=== PATIENT | male | born 1975 | race Caucasian/White ===

== ENCOUNTER → 2016-08-23 | Outpatient (CLI) | payer OTHER ==
--- NOTE | 2016-08-24 09:14 | XR ---
EXAMINATION TYPE: XR foot complete LT DATE OF EXAM: 08/23/2016 2:21 PM COMPARISON: NONE HISTORY: Pain TECHNIQUE: Three views are submitted. FINDINGS: The osseous structures are intact and there is arthropathy involving the head of the first tarsal. 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 There are calcaneal moderate size spurs.. There is no acute fracture or d islocation. IMPRESSION: 1. Moderate size calcaneal spurs. 2. First MTP joint arthropathy 3. 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 Differential diagnosis includes Freiberg's infarcti on.
== END | disposition home or self-care (01) ==
LOC: RADXRYALE 14:08
PROVIDERS: ATTEND Internal Medicine
DX: M77.32 Calcaneal spur, left foot (principal); M19.072 Primary osteoarthritis, left ankle and foot; R93.7 Abnormal findings on diagnostic imaging of other parts of musculoskeletal system